=== PATIENT | female | born 1970 | race Two or more races ===

== ENCOUNTER → 2021-03-11 | Outpatient (CLI) | payer BC, OTHER | END | disposition home or self-care (01) | LOC: XRAY 07:11 | PROVIDERS: ATTEND Family Medicine | DX: R06.09 Other forms of dyspnea (principal) | CPT/HCPCS: 71046 ==

== ENCOUNTER 2021-09-21 10:43 | Outpatient (CLI) | payer BC, OTHER | END 2021-09-21 23:59 | disposition home or self-care (01) | LOC: RAD 10:43 | PROVIDERS: ATTEND Family Medicine | DX: M19.011 Primary osteoarthritis, right shoulder (principal) | CPT/HCPCS: 73030 ==

== ENCOUNTER 2022-07-28 07:04 | Outpatient (CLI) | payer BC, OTHER | END 2022-07-28 23:59 | disposition home or self-care (01) | LOC: LAB 07:04 | PROVIDERS: ATTEND Surgery | DX: Z01.812 Encounter for preprocedural laboratory examination (principal); Z20.822 Contact with and (suspected) exposure to COVID-19 ==

== ENCOUNTER → 2022-07-28 | Outpatient (CLI) | payer BC, OTHER ==
[2022-07-28 09:01] LABS: *URINE HCG, QUAL NEG (NEGATIVE)
[2022-07-28 09:02] LABS: *BILIRUBIN,URIN NEGATIVE (NEGATIVE); *CLARITY,URINE CLEAR (CLEAR); *COLOR,URINE YELLOW (YELLOW); *KETONES,URINE NEGATIVE (NEGATIVE); *UROBILINOGEN,URINE 0.2 E.U./dl (NORMAL); LEUKOCYTE ESTERASE ,URINE NEGATIVE (NEGATIVE); NITRITE, URINE NEGATIVE (NEGATIVE); PH,URINE 6.5 (5.0-8.0); UGLUCOSE 2+ (NEGATIVE)
[2022-07-28 09:05] LABS: HEMATOCRIT 41.1 % (31.2-41.9); MEAN CORPUSCULAR VOLUME 80.9 fL (75.5-95.3); PLATELET COUNT (AUTO) 266 K/uL (179-408)
[2022-07-28 09:17] LABS: BILIRUBIN,TOTAL 0.3 mg/dL (0.2-1.0); CREATININE 0.7 mg/dL (0.6-1.3); POTASSIUM 3.7 mmol/L (3.5-5.1)
[2022-07-28 09:55] LABS: *BLOOD, URINE TRACE (NEGATIVE)
[2022-07-28 12:05] LABS: BACTERIA,URINE NONE SEEN /HPF (NONE SEEN); RBC,URINE 0-3 /HPF (0-3); SQUAMOUS EPITHELIAL CELL,UR MODERATE /HPF (NONE SEEN); WBC,URINE 0-3 /HPF (0-3)
== END | disposition home or self-care (01) ==
LOC: LAB 08:40
PROVIDERS: ATTEND Surgery
DX: Z01.818 Encounter for other preprocedural examination (principal); K62.5 Hemorrhage of anus and rectum
CPT/HCPCS: 36415; 71046; 84703; 85025; 85730

== ENCOUNTER 2022-07-31 07:33 | Day surgery (SDC) | payer BC, OTHER ==
[2022-07-31 08:01] LABS: *URINE HCG, QUAL NEG (NEGATIVE)
== END 2022-07-31 09:30 | disposition home or self-care (01) ==
LOC: DS 07:33
PROVIDERS: ATTEND Surgery
DX: K59.00 Constipation, unspecified (principal); Z53.8 Procedure and treatment not carried out for other reasons; I10 Essential (primary) hypertension; Z79.899 Other long term (current) drug therapy; Z98.890 Other specified postprocedural states
CPT/HCPCS: 93005; 84703; J7120; A4663

== ENCOUNTER 2023-04-12 08:46 | Outpatient (CLI) | payer BC, OTHER ==
[2023-04-12 09:55] LABS: MAGNESIUM 1.7 mg/dL (1.8-2.4)
[2023-04-12 10:29] LABS: *BILIRUBIN,URIN NEGATIVE (NEGATIVE); *BLOOD, URINE 3+ (NEGATIVE); *CLARITY,URINE CLEAR (CLEAR); *COLOR,URINE YELLOW (YELLOW); *KETONES,URINE NEGATIVE (NEGATIVE); *PROTEIN,URINE 1+ (NEGATIVE); *UROBILINOGEN,URINE 0.2 E.U./dl (NORMAL); LEUKOCYTE ESTERASE ,URINE NEGATIVE (NEGATIVE); NITRITE, URINE NEGATIVE (NEGATIVE); PH,URINE 5.5 (5.0-8.0)
[2023-04-12 10:38] LABS: UGLUCOSE 2+ (NEGATIVE)
[2023-04-12 11:27] LABS: BACTERIA,URINE FEW /HPF (NONE SEEN); RBC,URINE 20-50 /HPF (0-3); WBC,URINE 0-3 /HPF (0-3)
[2023-04-12 11:28] LABS: SQUAMOUS EPITHELIAL CELL,UR FEW /HPF (NONE SEEN)
[2023-04-13 13:06] LABS: *MICROALBUMIN, UR 52.8 ug/mL (Not Estab.); CREATININE, URINE 88.5 mg/dL (Not Estab.)
== END 2023-04-12 23:59 | disposition home or self-care (01) ==
LOC: LAB 08:46
PROVIDERS: ATTEND Family Medicine
DX: E11.9 Type 2 diabetes mellitus without complications (principal); E55.9 Vitamin D deficiency, unspecified; R79.9 Abnormal finding of blood chemistry, unspecified; Z79.899 Other long term (current) drug therapy
CPT/HCPCS: 36415; 82043; 82570; 83550; 83735; 84481; 84550

== ENCOUNTER 2023-10-05 10:13 | Outpatient (CLI) | payer BC, OTHER | END 2023-10-05 23:59 | disposition home or self-care (01) | LOC: RAD 10:13 | PROVIDERS: ATTEND Internal Medicine | DX: M25.551 Pain in right hip (principal) | CPT/HCPCS: 73502 ==

== ENCOUNTER 2023-12-31 13:48 | Emergency (ER) | payer BC, MEDICAID, OTHER ==
[~2023-12-31] VITALS: Ht 160 cm; Wt 64.4 kg
[2023-12-31 14:40] VITALS: O2SAT 97
[2023-12-31] MEDS ORDERED: ALBUTEROL SULFATE 2.5 MG/3 ML NEBU ONE (14:44)
[2023-12-31] MEDS ORDERED: IPRATROPIUM BROMIDE 0.5 MG/2.5 ML NEBU ONE (14:44)
[2023-12-31 14:45] VITALS: O2SAT 98
[2023-12-31] MEDS ORDERED: BUDESONIDE 0.5 MG/2 ML NEBU ONE (14:45)
[2023-12-31] MEDS: BUDESONIDE 0.5 MG/2 ML NEBU NEB ONE (14:51)
[2023-12-31] MEDS: IPRATROPIUM BROMIDE 0.5 MG/2.5 ML NEBU NEB ONE (14:51)
[2023-12-31] MEDS: ALBUTEROL SULFATE 2.5 MG/3 ML NEBU NEB ONE (14:51)
[2023-12-31 14:52] VITALS: O2SAT 98
[2023-12-31 14:53] VITALS: O2SAT 98
[2023-12-31 15:12] VITALS: O2SAT 98; O2SAT 99
[2023-12-31] MEDS ORDERED: ALBU6.7H9 INH (16:16)
[2023-12-31] MEDS ORDERED: DOXY100T2 PO (16:16)
[2023-12-31] MEDS ORDERED: BUDE10.2 INH (16:16)
[2023-12-31] MEDS ORDERED: HYDR473S4 PO (16:16)
[2023-12-31 16:31] VITALS: BP 130/70; TEMP 98; O2SAT 99
== END 2023-12-31 16:32 | disposition home or self-care (01) ==
LOC: ER 13:49
DX: J98.4 Other disorders of lung (principal); J40 Bronchitis, not specified as acute or chronic; E11.9 Type 2 diabetes mellitus without complications; Z79.899 Other long term (current) drug therapy
CPT/HCPCS: 71045; 94640; A4606; A4663; J3590

== ENCOUNTER 2024-07-24 13:01 | Emergency (ER) | payer MEDICAID, OTHER ==
[~2024-07-24] VITALS: Ht 160 cm; Wt 64.4 kg
[~2024-07-24 13:01] MED LIST: ALBU6.7H9 INH; BUDE10.2 INH; DOXY100T2 PO; HYDR473S4 PO
[2024-07-24 13:14] VITALS: O2SAT 98
[2024-07-24] MEDS ORDERED: IBUPROFEN 800 MG TABLET ONE (15:27)
[2024-07-24] MEDS: IBUPROFEN 800 MG TABLET PO ONE (15:29)
[2024-07-24] MEDS ORDERED: IBUP-1957 PO (16:59)
== END 2024-07-24 17:08 | disposition home or self-care (01) ==
LOC: ER 13:01
DX: S50.01XA Contusion of right elbow, initial encounter (principal); S09.8XXA Other specified injuries of head, initial encounter; E11.9 Type 2 diabetes mellitus without complications; I10 Essential (primary) hypertension; Z79.51 Long term (current) use of inhaled steroids; W01.0XXA Fall on same level from slipping, tripping and stumbling without subsequent striking against object, initial encounter; Y93.89 Activity, other specified; Y92.89 Other specified places as the place of occurrence of the external cause; Y99.8 Other external cause status
CPT/HCPCS: 70450; 72125; 73070; A4606; A4663